=== PATIENT | male | born 1965 | race Caucasian/White ===

== ENCOUNTER 2017-06-28 16:17 | Inpatient (IN) | payer MEDICAID ==
[~2017-06-28] VITALS: Ht 198.1 cm; Wt 96.6 kg
[2017-06-28] MEDS ORDERED: UNOBMED (16:23)
[2017-06-28 16:24] VITALS: BP 132/69
[2017-06-28] MEDS ORDERED: Sodium Chloride 500ML 500 ML IV ONE (16:24)
--- NOTE | 2017-06-28 17:04 | Diagnostic Imaging Report ---
Indication: Seizure Technique: Contiguous 5 mm thick transaxial imaging of the head obtained in a Siemens Sensation [address] scanner. Soft tissue and bone windows generated. Total Dose length Product (DLP): [address] Dose Index Volume (CTDIvol): 70.38, 0.15 mGy Comparison: none Findings: There is an abnormal low-attenuation focus in the right parietal lobe measuring about 2.7 x 2.0 CM. This focus is just deep to a craniotomy. The findings are nonspecific and could represent postsurgical fluid, encephalomalacia, or residual/recurrent mass. There is no acute hemorrhage. There is no mass effect on the lateral ventricle and no midline shift is seen. Strongly recommend obtaining reference studies for comparison and more specific historical data, such as nature of prior craniotomy. Impression: Abnormal focus of fluid attenuation in the right parietal lobe just deep to craniotomy. Comparison with previous examinations is critical for appropriate interpretation. Findings could represent recurrent or residual edema associated with a mass, a resolving operative bed fluid if there is been relatively recent craniotomy and appropriate reference studies showing improvement. Low-attenuation edema secondary to ischemia or cerebritis are not excluded. The CT scanner at [facility] is accredited by the [employer] and the scans are performed using dose optimization techniques as appropriate to a performed exam including Automatic Exposure control.
[2017-06-28] MEDS ORDERED: levETIRAcetam 500 MG in D5W 110 ML IV ONE (17:15)
[2017-06-28 17:33] LABS: MEAN CORPUSCULAR HGB CONC 31.6 G/DL (32.0-36.0); MEAN CORPUSCULAR VOLUME 92 FL (80-99); MEAN PLATELET VOLUME 5.9 FL (6.5-10.1); PLATELET COUNT 160 K/UL (150-450); RED BLOOD COUNT 4.44 M/UL (4.70-6.10); RED CELL DISTRIBUTION WIDTH 12.9 % (11.6-14.8); WHITE BLOOD COUNT 11.4 K/UL (4.8-10.8)
[2017-06-28] MEDS ORDERED: levETIRAcetam 500mg vial IV ONE (17:49)
[2017-06-28 17:57] LABS: ACETAMINOPHEN < 10 ug/mL (10-30); ALANINE AMINOTRANSFERASE 16 U/L (3-41); ALBUMIN/GLOBULIN RATIO 1.8 (1.0-2.7); ALCOHOL < 10 mg/dL; ANION GAP 16 (5-15); ASPARTATE AMINO TRANSFERASE 27 U/L (5-40); CALCIUM 9.2 mg/dL (8.6-10.2); CARBON DIOXIDE 25 mEQ/L (20-30); CHLORIDE 102 mEQ/L (98-107); CREATININE 1.2 mg/dL (0.7-1.2); GLOMERULAR FILTRATION RATE > 60 mL/min (>60); HEMOLYSIS 6; POTASSIUM 3.7 mEQ/L (3.4-4.9); SODIUM 143 mEQ/L (135-145); TOTAL PROTEIN 6.5 g/dL (6.6-8.7); VALPROIC ACID < 3 ug/mL (50-100)
[2017-06-28 18:27] LABS: BAND NEUTROPHILS % (MANUAL) 1 % (0-8); EOSINOPHILS % (MANUAL) 1 % (0-3); LYMPHOCYTES % (MANUAL) 9 % (20-45); NEUTROPHILS % (MANUAL) 86 % (45-75); TOTAL CELLS COUNTED 100
[2017-06-28 18:28] LABS: BASOPHILS % (MANUAL) 0 % (0-2); PLATELET ESTIMATE ADEQUATE; PLATELET MORPHOLOGY NORMAL
[2017-06-28 18:30] VITALS: BP 127/69
[2017-06-28 20:00] VITALS: BP 118/58
[2017-06-28] MEDS ORDERED: Morphine Sulfate 2mg/ml Inj IVP PRN (21:45)
[2017-06-28] MEDS ORDERED: Mylanta II UD 30ml ORAL PRN (21:45)
[2017-06-28] MEDS ORDERED: Miralax 17gm pkt ORAL PRN (21:45)
[2017-06-28] MEDS ORDERED: LORazepam Inj 2mg/ml 1ml IV PRN (21:45)
[2017-06-28] MEDS ORDERED: Zolpidem 5mg tab ORAL PRN (21:45)
--- NOTE | 2017-06-28 21:50 | Emergency Room Report ---
History of Present Illness General Chief Complaint: Seizure Source: Patient, EMS Present Illness HPI 52-year-old male presents ED status post seizure. Witnessed seizure at hotel today. No head injury. Upon arrival patient is post ictal and confused. Per EMS patient has a history of brain cancer. Patient states he does not remember what medications he takes. States he is not always compliant with his medications. Admits to alcohol use and marijuana use. States he has a brain cancer and had recent surgery in [place]. Denies use of chills. Denies headache, blurry vision, nausea or vomiting. No other aggravating relieving factors. Denies any other substance symptoms Allergies: Coded Allergies: No Known Allergies (Unverified , 06/28/17) Patient History Past Medical History: seizures, other - brain cancer Past Surgical History: none Pertinent Family History: none Social History: Reports: alcohol use, Denies: smoking, drug use Immunizations: UTD Reviewed Nursing Documentation: PMH: Agreed, PSxH: Agreed Nursing Documentation-PMH Past Medical History: No History, Except For Hx Cancer: Yes - BRAIN Hx Seizures: Yes Review of Systems All Other Systems: negative except mentioned in HPI Physical Exam Vital Signs Date Time Temp Pulse Resp B/P (MAP) Pulse Ox O2 Delivery O2 Flow Rate FiO2 06/28/17 16:14 97.7 75 20 113/70 96 Room Air Sp02 EP Interpretation: reviewed, normal General Appearance: no apparent distress, GCS 15, non-toxic, lethargic Head: normocephalic, atraumatic, other - surgical scar to scalp Eyes: bilateral eye normal inspection, bilateral eye PERRL ENT: hearing grossly normal, normal pharynx, no angioedema, normal voice Neck: full range of motion, supple/symm/no masses Respiratory: chest non-tender, lungs clear, normal breath sounds, speaking full sentences Cardiovascular #1: regular rate, rhythm, no edema Cardiovascular #2: 2+ carotid (R), 2+ carotid (L), 2+ radial (R), 2+ radial (L) , 2+ dorsalis pedis (R), 2+ dorsalis pedis (L) Gastrointestinal: normal bowel sounds, non tender, soft, non-distended, no guarding, no rebound Rectal: deferred Genitourinary: normal inspection, no CVA tenderness Musculoskeletal: back normal, gait/station normal, normal range of motion, non- tender Neurologic: other - lethargic Psychiatric: other - lethargic Reflexes: 3+ bicep (R), 3+ bicep (L), 3+ tricep (R), 3+ tricep (L), 3+ knee (R) , 3+ knee (L) Skin: normal color, no rash, warm/dry, well hydrated Lymphatic: no adenopathy Medical Decision Making Diagnostic Impression: Primary Impression: Seizure disorder Additional Impression: Altered level of consciousness ER Course Hospital Course 52-year-old M presents to ED status post seizure. Differential diagnosis includes- breakthrough seizure, alcohol abuse, noncompliance with medication Clinical course Patient placed on stretcher. Initial history and physical I ordered labs, IV fluids, CT brain Labs-electrolyes okay, leukocytosis noted, hemoglobin/hematocrit stable. Utox + THC EKG - nsr, no acute ischemic changes interpreted by me CT Brain low attenuation focus in the right parietal lobe, deep to craniotomy. No acute hemorrhage. No mass effect. No midline shift. Patient is status post brain surgery a few months ago in [place] Patient is more awake and states that he takes Keppra. Patient does not remember the rest of his medications. Patient continues to be drowsy Case discussed with Dr. Beaulieu and he agreed to accept the patient to his service for further care and support. i. I feel this is a highly complex case requiring extensive working including EKG/Rhythm strip, Xray/CT/US, Blood/urine lab work, repeat exams while in ED, and administration of strong opiates/narcotics for pain control, admission to hospital or close patient follow up. Diagnosis - seizure, ALOC admitted to telemetry in serious condition Labs Test 06/28/17 17:15 06/28/17 18:00 White Blood Count 11.4 K/UL (4.8-10.8) Red Blood Count 4.44 M/UL (4.70-6.10) Hemoglobin 12.9 G/DL (14.2-18.0) Hematocrit 40.9 % (42.0-52.0) Mean Corpuscular Volume 92 FL (80-99) Mean Corpuscular Hemoglobin 29.0 PG (27.0-31.0) Mean Corpuscular Hemoglobin Concent 31.6 G/DL (32.0-36.0) Red Cell Distribution Width 12.9 % (11.6-14.8) Platelet Count 160 K/UL (150-450) Mean Platelet Volume 5.9 FL (6.5-10.1) Neutrophils (%) (Auto) % (45.0-75.0) Lymphocytes (%) (Auto) % (20.0-45.0) Monocytes (%) (Auto) % (1.0-10.0) Eosinophils (%) (Auto) % (0.0-3.0) Basophils (%) (Auto) % (0.0-2.0) Differential Total Cells Counted 100 Neutrophils % (Manual) 86 % (45-75) Lymphocytes % (Manual) 9 % (20-45) Monocytes % (Manual) 3 % (1-10) Eosinophils % (Manual) 1 % (0-3) Basophils % (Manual) 0 % (0-2) Band Neutrophils 1 % (0-8) Platelet Estimate Adequate Platelet Morphology Normal Red Blood Cell Morphology Normal Sodium Level 143 mEQ/L (135-145) Potassium Level 3.7 mEQ/L (3.4-4.9) Chloride Level 102 mEQ/L (98-107) Carbon Dioxide Level 25 mEQ/L (20-30) Anion Gap 16 (5-15) Blood Urea Nitrogen 11 mg/dL (7-23) Creatinine 1.2 mg/dL (0.7-1.2) Estimat Glomerular Filtration Rate > 60 mL/min (>60) Glucose Level 101 mg/dL (74-106) Calcium Level 9.2 mg/dL (8.6-10.2) Total Bilirubin 0.4 mg/dL (0.0-1.2) Aspartate Amino Transf (AST/SGOT) 27 U/L (5-40) Alanine Aminotransferase (ALT/SGPT) 16 U/L (3-41) Alkaline Phosphatase 47 U/L (40-129) Total Protein 6.5 g/dL (6.6-8.7) Albumin 4.2 g/dL (3.5-5.2) Globulin 2.3 g/dL Albumin/Globulin Ratio 1.8 (1.0-2.7) Salicylates Level < 1 mg/dL (10-30) Acetaminophen Level < 10 ug/mL (10-30) Phenytoin (Dilantin) Level < 0.8 ug/mL (10-20) Valproic Acid (Depakene) Level < 3 ug/mL (50-100) Phenobarbital Level < 2.4 ug/mL (20.0-40.0) Serum Alcohol < 10 mg/dL Urine Opiates Screen Negative (NEGATIVE) Urine Barbiturates Screen Negative (NEGATIVE) Phencyclidine (PCP) Screen Negative (NEGATIVE) Urine Amphetamines Screen Negative (NEGATIVE) Urine Benzodiazepines Screen Negative (NEGATIVE) Urine Cocaine Screen Negative (NEGATIVE) Urine Marijuana (THC) Screen Positive (NEGATIVE) EKG Diagnostic Results Rate: normal Rhythm: NSR ST Segments: no acute changes ASA given to the pt in ED: No Rhythm Strip Diag. Results EP Interpretation: yes Rhythm: NSR, no PVC's, no ectopy CT/MRI/US Diagnostic Results CT/MRI/US Diagnostic Results : Imaging Test Ordered: CT Head Impression Low attenuation focus and right parietal lobe. deep to craniotomy. Likely postsurgical. No hemorrhage. No mass effect. No midline shift. Last Vital Signs Date Time Temp Pulse Resp B/P (MAP) Pulse Ox O2 Delivery O2 Flow Rate FiO2 06/28/17 18:30 98.0 76 21 127/69 100 Room Air Status: improved Disposition: ADMITTED INPATIENT Condition: Serious Referrals: NOT CHOSEN CALIN/,REFERRING (PCP) BARRY RAMIREZ M.D. Jun 28, 2017 21:50
[2017-06-28 22:00] VITALS: BP 128/94
[2017-06-29 01:10] VITALS: BP 117/66
[2017-06-29 04:32] VITALS: BP 100/65
[2017-06-29 08:19] LABS: BASOPHILS % (AUTO) 0.8 % (0.0-2.0); EOSINOPHILS % (AUTO) 1.3 % (0.0-3.0); LYMPHOCYTES % (AUTO) 11.6 % (20.0-45.0); MEAN CORPUSCULAR HEMOGLOBIN 29.8 PG (27.0-31.0); MEAN CORPUSCULAR HGB CONC 32.3 G/DL (32.0-36.0); MEAN CORPUSCULAR VOLUME 92 FL (80-99); MEAN PLATELET VOLUME 6.9 FL (6.5-10.1); NEUTROPHILS % (AUTO) 75.3 % (45.0-75.0); PLATELET COUNT 177 K/UL (150-450); RED BLOOD COUNT 4.56 M/UL (4.70-6.10); RED CELL DISTRIBUTION WIDTH 13.1 % (11.6-14.8); WHITE BLOOD COUNT 6.1 K/UL (4.8-10.8)
[2017-06-29 08:31] VITALS: BP 117/71
[2017-06-29 08:37] LABS: ALANINE AMINOTRANSFERASE 14 U/L (3-41); ALBUMIN/GLOBULIN RATIO 1.6 (1.0-2.7); ANION GAP 8 (5-15); ASPARTATE AMINO TRANSFERASE 24 U/L (5-40); CALCIUM 9.2 mg/dL (8.6-10.2); CARBON DIOXIDE 29 mEQ/L (20-30); CHLORIDE 106 mEQ/L (98-107); CREATININE 1.1 mg/dL (0.7-1.2); GLOMERULAR FILTRATION RATE > 60 mL/min (>60); HEMOLYSIS 4; SODIUM 143 mEQ/L (135-145); TOTAL PROTEIN 6.2 g/dL (6.6-8.7)
[2017-06-29] MEDS ORDERED: Heparin 5000 units/ml inj SUBQ SCH (09:00)
[2017-06-29 11:49] VITALS: BP 110/68
--- NOTE | 2017-06-29 14:34 | Consultation ---
History of Present Illness General Date patient seen: Jun 28, 2017 Chief Complaint: Seizure Reason for Consultation: seizures Present Illness HPI 52-year-old male with hx of brain tumor s/p resection presented to ED status post witnessed seizure at hotel today. Upon arrival in ER patient was post ictal and confused. Patient states he does not remember what medications he takes. States he is not always compliant with his medications. Denies headache, blurry vision, nausea or vomiting. No other aggravating relieving factors. Pt is admitted to telemetry for uncontrolled seizures. Allergies: Coded Allergies: No Known Allergies (Unverified , 06/28/17) Medication History Miscellaneous Medications Unable to Obtain Medications (Unable To Obtain Meds), (Reported) Patient History Healthcare decision maker Resuscitation status Full Code Advanced Directive on File Past Medical/Surgical History Past Medical/Surgical History: (1) Brain cancer (2) Seizure disorder Review of Systems All Other Systems: negative except mentioned in HPI Physical Exam General Appearance: WD/WN Lines, tubes and drains: peripheral HEENT: normocephalic, atraumatic Neck: non-tender, normal alignment Respiratory/Chest: chest wall non-tender, lungs clear Breasts: no masses Cardiovascular/Chest: normal peripheral pulses Abdomen: normal bowel sounds, non tender Genitourinary/Rectal: normal genital exam, normal rectal exam Extremities: normal range of motion Skin Exam: normal pigmentation Neurologic: brand ambassador II-XII grossly normal Last 24 Hour Vital Signs Date Time Temp Pulse Resp B/P (MAP) Pulse Ox O2 Delivery O2 Flow Rate FiO2 06/29/17 11:49 97.6 64 20 110/68 100 Room Air 06/29/17 08:31 97.7 60 20 117/71 99 Room Air 06/29/17 08:00 66 06/29/17 04:32 96.9 59 16 100/65 98 Room Air 06/29/17 04:00 55 06/29/17 01:20 67 06/29/17 01:10 96.6 60 18 117/66 98 Room Air 06/29/17 00:50 64 20 128/94 Room Air 128/94 06/29/17 00:05 98.4 64 20 100 Room Air 06/28/17 22:00 67 21 128/94 99 Room Air 06/28/17 20:00 72 20 Room Air 06/28/17 20:00 98.2 72 20 118/58 100 Room Air 06/28/17 18:30 98.0 76 21 127/69 100 Room Air 06/28/17 16:24 97.6 78 14 132/69 100 Room Air 06/28/17 16:24 78 14 Room Air 06/28/17 16:14 97.7 75 20 113/70 96 Room Air Intake and Output 06/29/17 06/30/17 19:00 07:00 Intake Total 360 ml Balance 360 ml Intake Oral 360 ml # Voids 2 Laboratory Tests Test 06/28/17 17:15 06/28/17 18:00 06/29/17 07:05 White Blood Count 11.4 K/UL (4.8-10.8) H 6.1 K/UL (4.8-10.8) Red Blood Count 4.44 M/UL (4.70-6.10) L 4.56 M/UL (4.70-6.10) L Hemoglobin 12.9 G/DL (14.2-18.0) L 13.6 G/DL (14.2-18.0) L Hematocrit 40.9 % (42.0-52.0) L 42.1 % (42.0-52.0) Mean Corpuscular Volume 92 FL (80-99) 92 FL (80-99) Mean Corpuscular Hemoglobin 29.0 PG (27.0-31.0) 29.8 PG (27.0-31.0) Mean Corpuscular Hemoglobin Concent 31.6 G/DL (32.0-36.0) L 32.3 G/DL (32.0-36.0) Red Cell Distribution Width 12.9 % (11.6-14.8) 13.1 % (11.6-14.8) Platelet Count 160 K/UL (150-450) 177 K/UL (150-450) Mean Platelet Volume 5.9 FL (6.5-10.1) L 6.9 FL (6.5-10.1) Neutrophils (%) (Auto) % (45.0-75.0) 75.3 % (45.0-75.0) H Lymphocytes (%) (Auto) % (20.0-45.0) 11.6 % (20.0-45.0) L Monocytes (%) (Auto) % (1.0-10.0) 11.0 % (1.0-10.0) H Eosinophils (%) (Auto) % (0.0-3.0) 1.3 % (0.0-3.0) Basophils (%) (Auto) % (0.0-2.0) 0.8 % (0.0-2.0) Differential Total Cells Counted 100 Neutrophils % (Manual) 86 % (45-75) H Lymphocytes % (Manual) 9 % (20-45) L Monocytes % (Manual) 3 % (1-10) Eosinophils % (Manual) 1 % (0-3) Basophils % (Manual) 0 % (0-2) Band Neutrophils 1 % (0-8) Platelet Estimate Adequate Platelet Morphology Normal Red Blood Cell Morphology Normal Sodium Level 143 mEQ/L (135-145) 143 mEQ/L (135-145) Potassium Level 3.7 mEQ/L (3.4-4.9) 4.0 mEQ/L (3.4-4.9) Chloride Level 102 mEQ/L (98-107) 106 mEQ/L (98-107) Carbon Dioxide Level 25 mEQ/L (20-30) 29 mEQ/L (20-30) Anion Gap 16 (5-15) H 8 (5-15) Blood Urea Nitrogen 11 mg/dL (7-23) 11 mg/dL (7-23) Creatinine 1.2 mg/dL (0.7-1.2) 1.1 mg/dL (0.7-1.2) Estimat Glomerular Filtration Rate > 60 mL/min (>60) > 60 mL/min (>60) Glucose Level 101 mg/dL (74-106) 120 mg/dL (74-106) H Calcium Level 9.2 mg/dL (8.6-10.2) 9.2 mg/dL (8.6-10.2) Total Bilirubin 0.4 mg/dL (0.0-1.2) 0.6 mg/dL (0.0-1.2) Aspartate Amino Transf (AST/SGOT) 27 U/L (5-40) 24 U/L (5-40) Alanine Aminotransferase (ALT/SGPT) 16 U/L (3-41) 14 U/L (3-41) Alkaline Phosphatase 47 U/L (40-129) 48 U/L (40-129) Total Protein 6.5 g/dL (6.6-8.7) L 6.2 g/dL (6.6-8.7) L Albumin 4.2 g/dL (3.5-5.2) 3.9 g/dL (3.5-5.2) Globulin 2.3 g/dL 2.3 g/dL Albumin/Globulin Ratio 1.8 (1.0-2.7) 1.6 (1.0-2.7) Salicylates Level < 1 mg/dL (10-30) L Acetaminophen Level < 10 ug/mL (10-30) L Primidone (Mysoline) Level Pending Phenytoin (Dilantin) Level < 0.8 ug/mL (10-20) L Valproic Acid (Depakene) Level < 3 ug/mL (50-100) L Phenobarbital Level Pending Serum Alcohol < 10 mg/dL Urine Opiates Screen Negative (NEGATIVE) Urine Barbiturates Screen Negative (NEGATIVE) Phencyclidine (PCP) Screen Negative (NEGATIVE) Urine Amphetamines Screen Negative (NEGATIVE) Urine Benzodiazepines Screen Negative (NEGATIVE) Urine Cocaine Screen Negative (NEGATIVE) Urine Marijuana (THC) Screen Positive (NEGATIVE) H Height (Feet): 6 Height (Inches): 6.00 Weight (Pounds): 213 Medications Current Medications Medications (Trade) Dose Ordered Sig/Margarito Route PRN Reason Start Time Stop Time Status Last Admin Dose Admin Acetaminophen (Tylenol) 650 mg Q4H PRN ORAL fever 06/28/17 21:45 07/28/17 21:44 Al Hydroxide/Mg Hydroxide (Mylanta II) 30 ml Q6H PRN ORAL dyspepsia 06/28/17 21:45 07/28/17 21:44 Dextrose (Dextrose 50%) STAT PRN IV Hypoglycemia 06/28/17 21:45 07/28/17 21:44 Heparin Sodium (Porcine) (Heparin 5000 units/ml) 5,000 units EVERY 12 HOURS SUBQ 06/29/17 09:00 07/29/17 08:59 06/29/17 08:55 Lorazepam (Ativan 2mg/ml 1ml) 2 mg EVERY HOUR PRN IV seizures 06/28/17 21:45 07/05/17 21:44 Morphine Sulfate (Morphine Sulfate) 1 mg EVERY 4 HOURS PRN IVP For Pain 06/28/17 21:45 07/05/17 21:44 Ondansetron HCl (Zofran) 4 mg Q6H PRN IVP Nausea & Vomiting 06/28/17 21:45 07/28/17 21:44 Polyethylene Glycol (Miralax) 17 gm HSPRN PRN ORAL Constipation 06/28/17 21:45 07/28/17 21:44 Zolpidem Tartrate (Ambien) 5 mg HSPRN PRN ORAL Insomnia 06/28/17 21:45 07/05/17 21:44 Assessment/Plan Problem List: (1) Uncontrolled seizures ICD Codes: R56.9 - Unspecified convulsions SNOMED: 58243687 (2) Brain cancer ICD Codes: C71.9 - Malignant neoplasm of brain, unspecified SNOMED: 117898800 Assessment/Plan symptomatic treatment neuro evaluation obtain records from previous hospital YAAKOV WEEKS Jun 29, 2017 14:34
[2017-06-29 15:30] VITALS: BP 119/76
--- NOTE | 2017-06-29 17:06 | History & Physical ---
History and Physical History & Physicial job # [id number] Bimal Beaulieu MD Jun 29, 2017 17:06
--- NOTE | 2017-06-30 03:15 | History and Physical Report ---
DATE OF ADMISSION: 06/28/2017 CHIEF COMPLAINT: Altered mental status and seizure activity. History of Present Illness: This is a 52-year-old gentleman with a past medical history significant for seizure disorder as well as a history of brain CA with glioblastoma, under therapy in [facility]. The patient is traveling from [facility] to [place]. He has been drinking a lot of alcohol as well as smoking pot and he was found to have altered mental status with a witnessed seizure while he was in the hospital. EMS was called and the patient was subsequently transferred to the hospital. The patient had no head injury as a result and does not remember what medication he was taking and he complained about a headache initially and shortly after initial evaluation in the emergency room, the patient was admitted to the hospital with uncontrolled seizure as well as glioblastoma tumor. Past Medical History and Past Surgical History: As above, history of glioblastoma as well as seizure disorder. Medications: At home, significant for seizure medications, but does not remember. ALLERGIES: No known drug allergies. Social History: The patient currently drinks and smokes marijuana. No substance abuse. FAMILY HISTORY: Noncontributory. Review Of Systems: Mostly as above. Denies any dysuria, frequency, or hematochezia. Denies any hemoptysis or hematochezia. Denies any double vision. Positive loss of consciousness. Denies any suicidal or homicidal ideation. PHYSICAL EXAMINATION: Vital Signs: On admission, temperature 97.6, pulse of 75, respirations 20, and blood pressure 113/70. GENERAL: The patient is awake, responsive, no acute distress. HEENT: Pupils are equal and reactive to light. Extraocular movements are intact. Alopecia was noted on the right side of the scalp. NECK: Supple. No JVD. LUNGS: Good air entry. No wheezing or rales. HEART: S1 and S2. Regular rhythm. No gallops. Abdomen: Soft, nondistended, and nontender. Positive bowel sounds. EXTREMITIES: No cyanosis, clubbing, or edema. Neurologic: Cranial nerves II through XII are grossly intact. Motor is 5/5 in all extremities. Gait is intact. Laboratory Data: On admission from the ER, WBC of 11.4, hemoglobin 12, hematocrit 40, and platelets 160. Sodium 143, potassium 2.7, chloride 102, bicarbonate 25, BUN 11, creatinine 1.2, AST 27, ALT 16, and albumin 4.2. Urine drug screen is positive for marijuana. Negative Dilantin. Negative valproic acid. Negative acetaminophen. Negative salicylate. Imaging Study: CT of the head was done, noted the patient has abnormal foci of the fluid attenuation of the right parietal lobe just deep to the craniotomy. In comparison to the previous examination, it is critical for appropriate interpretation. Finding could represent recurrent or residual edema associated with a mass or resolving operative bed fluid. CT of the brain, low attenuation edema secondary to ischemia or cellulitis are not excluded. ASSESSMENT: 1. Uncontrolled seizure. 2. History of glioblastoma, status post resection. Plan: Admit the patient to monitored unit. We will follow up with Dr. Gongora from the Critical Care as well as Dr. Juan C Driscoll from Neurology. Discussed with the patient extensively at the bedside. Explained to the patient his status and imaging findings. Try to obtain the records from his primary doctor in [facility] and Code Status is Full Code. DVT prophylaxis, heparin subcutaneously, and follow up with the seizure precautions. Bimal Beaulieu M.D. DR: Mary Ellen JOB#: [id number] CC:
--- NOTE | 2017-07-02 10:25 | Discharge Summary ---
Discharge Summary Hospital Course Date of Admission Jun 28, 2017 at 19:33 Date of Discharge Jun 29, 2017 at 18:00 Admitting Diagnosis seizure/ams HPI Derrell Degroot is a 52 year old male who was admitted on Jun 28, 2017 at 19: 33 for Seizure/Altered Mental Status Hospital Course dc summary #[id number] Discharge Discharge Disposition Patient eloped Discharge Diagnoses: Discharge Instructions Discharge Instructions Special Instructions I have been assigned to complete a D/C Summary on this account. I was not involved in the patient management Farzaneh Mcfarland NP (Vanchtein) Jul 02, 2017 10:25
--- NOTE | 2017-07-03 06:46 | Discharge Summary 2 SIG ---
DATE OF ADMISSION: 06/28/2017 DATE OF ELOPEMENT: 06/29/2017 REASON FOR ADMISSION: 52-year-old male with a history of seizure disorder and brain glioblastoma, status post resection, who resides in [facility], came to [place] and had witnessed seizure after drinking alcohol and smoking. The patient had no head injury, no trauma. Paramedics were called and the patient was transferred to the emergency room for further management. CT of the head was done in the emergency room. The patient was admitted for further management. ADMITTING DIAGNOSES: 1. Uncontrolled seizure. 2. History of brain glioblastoma, status post resection. HOSPITAL STAY: The patient admitted to telemetry floor. Neurology and hospitalist consults were requested. CT of the head revealed abnormal focus of fluid attenuation in the right parietal lobe just deep to craniotomy. Comparison with the previous examination was crucial for appropriate interpretation. Finding could represent recurrent or residual edema or resolving operative back fluid if there had been relatively a recent craniotomy and appropriate reference study show improvement. However, low attenuation edema, secondary to ischemia or cerebritis were not completely excludable. Attempts were made to contact the hospital for imaging studies, Urine toxicology screen was positive for marijuana. Serum alcohol was less than 10 and serum phenobarbital less than 2.4. Serum Depakote less than 3. Serum Dilantin level -0.8. Tylenol level and salicylate were unremarkable. The patient was unable to recall what medication he was taking for seizures. The patient was started on Keppra. Seizure precaution were maintained, no further seizure activity while in the hospital. DVT prophylaxis provided. The patient was on intravenous hydration. Bowel regimen instituted. The patient decided to go home. He verbally abused nursing staff and declined to sign against medical advice form. The risks and consequences of leaving the hospital, were explained by the nursing staff. Patient left without signing the AMA form. FINAL DIAGNOSES: 1. Uncontrolled seizures. 2. History of glioblastoma, status post resection of glioblastoma. Bimal Beaulieu M.D. I have been assigned to dictate discharge summary on this account and I was not involved in the patient's management. Farzaneh Mcfarland N.P. (Vanchtein) DR: RAJESH JOB#: [id number] CC: MALLY
--- NOTE | 2017-07-05 23:27 | Cardiology Report ---
APPROVED REPORT EKG Measurement Heart [id number] Normal sinus rhythm Rightward axis Borderline ECG
== END 2017-06-29 18:00 | disposition left against medical advice (07) | DRG 53 ==
LOC: EDBD 16:17 → EMR 18:59 → 2E 19:33 → EDBEDREQ 19:57
DX: G40.919 Epilepsy, unspecified, intractable, without status epilepticus (principal); Z85.841 Personal history of malignant neoplasm of brain
CPT/HCPCS: 36415; 70450; 80053; 80164; 80184; 80185; 80188; 80299; 80300; 80329; 85007; 85025; 93005; 99285